=== PATIENT | female | born 1955 | race Caucasian/White ===

== ENCOUNTER 2024-03-20 10:30 | Day surgery (SDC) | payer OTHER ==
[2024-03-14 14:08] LABS: Absolute Lymphocytes (CBC) 2.1 K/uL (0.7-4.9); Absolute Monocytes 1.6 K/uL (0.1-1.3); Absolute Neutrophil 2.1 K/uL (1.8-8.0); Basophils % 0.8 % (0-1.3); Eosinophils % 0.3 % (0-4.4); Hematocrit 43.2 % (36.0-45.0); Hemoglobin 14.6 g/dL (12.0-15.0); MCH 29.6 pg (27.0-35.0); MCHC 33.8 g/dL (32.0-36.0); MCV 87.4 fL (80-100); MPV 9.3 fL (7.6-11.3); Monocytes % 27.7 % (3.3-12.3); Neutrophils % 36.2 % (41.7-73.7); Platelets 201 thou/uL (152-406); RBC Red Blood Cell Count 4.95 M/uL (3.86-4.86); Red Cell Distribution Width 12.7 % (12.1-15.2)
[2024-03-14 14:16] LABS: PT Prothrombin Time 11.9 SECONDS (9.4-12.5); PTT, Activated Partial Thromb 33.7 SECONDS (24.3-36.9); Protime INR 1.06
[2024-03-14 15:02] LABS: Blood Morphology Comment NOT SEEN (NOT SEEN); Platelet Estimate ADEQ; White Blood Cell Scan OK (OK)
--- NOTE | 2024-03-15 13:17 | EKG ---
Test Date: 2024-03-14 Test Time: 13:47:38 Plant Operator/Shift Supervisor: EUGENIO MEASUREMENT RESULTS: Intervals: Rate: 81 [place]: 142 QRSD: 90 QT: 372 QTc: 432 [place]: P: 40 [place]: 142 QRS: -24 T: 24 INTERPRETIVE STATEMENTS: Normal sinus rhythm Possible Left atrial enlargement Left ventricular hypertrophy Abnormal ECG No previous ECG available for comparison Electronically Signed On 03-15-24 13:14:34 CDT by Chandan Sherman
[2024-03-20] MEDS ORDERED: LIDOCAINE 1% 20 ML MDV ONE (12:33)
[2024-03-20] MEDS ORDERED: TICAGRELOR 90 MG TABLET PO ONE (12:33)
[2024-03-20] MEDS ORDERED: MIDAZOLAM HCL 2 MG/2 ML INJ ONE (12:33)
[2024-03-20] MEDS ORDERED: HEPARIN 5000 UNIT/ML 1 ML VIAL ONE (12:33)
[2024-03-20] MEDS ORDERED: ATROPINE SULF 1 MG/10 ML SYR IV ONE (12:33)
[2024-03-20] MEDS ORDERED: HEPA 1000U/500MLS 2,000 UNIT/1,000 ML BAG IV ONE (12:33)
[2024-03-20] MEDS ORDERED: FENTANYL CITR 100 MCG/2 ML ONE (12:33)
[2024-03-20] MEDS ORDERED: VERAPAMIL HCL 10 MG/4 ML VIAL IV ONE (12:33)
[2024-03-20] MEDS ORDERED: ASPIRIN 325 MG TAB ONE (12:34)
[2024-03-20] MEDS ORDERED: HEPARIN 10,000 UNIT/10 ML VIAL IV ONE (12:34)
[2024-03-20] MEDS ORDERED: CLOPIDOGREL 75 MG TABLET ONE (12:34)
[2024-03-20 15:39] VITALS: O2SAT 95
[2024-03-20 16:09] VITALS: BP 109/58
--- NOTE | 2024-03-20 16:33 | OP ---
Date of Procedure: 03/20/2024 Surgeon: NAVEEN CERVANTES Procedures Performed: 1.Selective coronary angiogram. 2.Left heart catheterization. Indication: Unstable angina. Access: Right radial artery 6-Mongolian closed with TR band. Complications: None. Bleeding: Less than 50 mL. Anesthesia: Total sedation time was 45 minutes, used fentanyl and Versed. Description Of Procedure: After risks, benefits, and alternatives were explained, the patient agreed to the procedure and signed informed consent. The patient was brought into the cardiac catheterizat ion laboratory, prepped and draped in the usual sterile fashion. Then, I accessed right radial arter y using pediatric micropuncture kit, placed a 6-Mongolian Slender sheath and took 5-Mongolian [place] 4.0 cat heter into the aortic root, could not engage the left main or RCA, then I exchanged for a 6-Mongolian JL 3.5 catheter, engaged the left main, took standard views and exchanged for 6-Mongolian 3DRC catheter, en gaged the RCA, took standard views and catheter was pushed over the wire into the LV, measured the LV EDP. Pullback did not record any gradient. Then I removed the catheter and the sheath, placed TR ba nd with good hemostasis. Findings: 1.Left main; large and normal. 2.LAD; large and normal. Normal diagonal branches. 3.Left circumflex; large and dominant and normal. 4.RCA; small, nondominant, and no significant disease. 5.Normal LVEDP at 10 mmHg. Conclusion: 1.Normal coronary arteries. 2.Normal LVEDP. Recommendation: Medical management. /MODL Voice ID: [id number] Report ID: [id number]
== END 2024-03-20 16:10 | disposition home or self-care (01) ==
LOC: CCL 10:30
PROVIDERS: ATTEND Internal Medicine
DX: I20.0 Unstable angina (principal); R00.2 Palpitations; I10 Essential (primary) hypertension; I51.7 Cardiomegaly; E78.5 Hyperlipidemia, unspecified; E11.9 Type 2 diabetes mellitus without complications; Z79.899 Other long term (current) drug therapy; Z88.5 Allergy status to narcotic agent
CPT/HCPCS: 93005; 85025; 80048; 36415; 85610; 85730; 93458; 76937; C1893; Q9966; J1644; J2001; J2250; J3010; 99152; 99153; J0461